=== PATIENT | female | born 1990 ===

== ENCOUNTER 2019-08-01 12:41 | Emergency (ER) | payer OTHER ==
[~2019-08-01] VITALS: Ht 149.9 cm; Wt 53.1 kg
[2019-08-01] MEDS ORDERED: CONCEPT DHA CA1 EACH PO (16:44)
== END 2019-08-01 17:11 | disposition home or self-care (01) ==
LOC: ER 12:41
DX: O20.0 Threatened abortion (principal)

== ENCOUNTER 2019-08-25 22:38 | Emergency (ER) | payer OTHER ==
[~2019-08-25] VITALS: Ht 162.6 cm; Wt 53.5 kg
[~2019-08-25 22:38] MED LIST: CONCEPT DHA CA1 EACH PO
== END 2019-08-26 02:36 | disposition home or self-care (01) ==
LOC: ER 22:38
DX: O20.8 Other hemorrhage in early pregnancy (principal); O43.891 Other placental disorders, first trimester

== ENCOUNTER 2019-08-29 06:35 | Emergency (ER) | payer OTHER ==
[~2019-08-29] VITALS: Ht 157.5 cm; Wt 53.5 kg
[2019-08-29] MEDS ORDERED: MORGIDOX100 MG PO (12:52)
[2019-08-30] MEDS ORDERED: NAPR500T14 PO (17:15)
== END 2019-08-29 13:35 | disposition home or self-care (01) ==
LOC: ER 06:35
DX: O03.6 Delayed or excessive hemorrhage following complete or unspecified spontaneous abortion (principal)

== ENCOUNTER 2019-08-30 13:37 | Day surgery (SDC) | payer OTHER ==
[~2019-08-30] VITALS: Ht 157.5 cm; Wt 49.4 kg
[~2019-08-30 13:37] MED LIST changes: +MORGIDOX100 MG PO
[2019-08-30] MEDS ORDERED: NAPR500T14 PO (17:15)
== END 2019-08-30 22:39 | disposition home or self-care (01) ==
LOC: ER 13:37 → CIR.AMB 15:03
DX: O03.4 Incomplete spontaneous abortion without complication (principal)